=== PATIENT | female | born 1955 | race Caucasian/White ===

== ENCOUNTER 2018-05-21 11:44 | Emergency (ER) | payer SELFPAY ==
[~2018-05-21] VITALS: Ht 160 cm; Wt 65.2 kg
[2018-05-21 11:47] VITALS: BP 136/65; PULSE 76; RESP 16; Ht 160 cm; Wt 65.2 kg
[2018-05-21] MEDS ORDERED: AZIT250T PO (13:13)
--- NOTE | 2018-05-21 13:20 | ERD ---
ER Documentation Chief Complaint Chief Complaint pt is bib family with c/o sore throat x 1 month HPI 62-year-old female presenting with multiple symptoms and stating she feels sick for the past 1 month. Initially she had URI symptoms. This lasted for about 2- 3 weeks. She got better for about 2 days then she started feeling sick again with subjective fevers, cough, sore throat, and cough productive of green phlegm. She is complaining of some soreness in her chest and her back as well. No facial pain, dizziness, vision disturbance, headaches, shortness of breath. She has been taking Tylenol for her fever and she took some Tylenol prior to arrival today. She feels that she is worsening. ROS All systems reviewed and are negative except as per history of present illness. Medications Home Meds Active Scripts Azithromycin* (Zithromax*) 250 Mg Tablet, 250 MG PO .ZPACK DIRECTED, #6 TAB TAKE 500 MG (2 TABS) THE FIRST DAY THEN 250 MG (1 TAB) DAYS 2-5 Prov:JAMMIE ARTHUR MD 05/21/18 Allergies Allergies: Coded Allergies: No Known Allergy (Unverified , 05/21/18) PMhx/Soc Medical and Surgical Hx: pt denies Medical Hx History of Surgery: No FmHx Family History: No diabetes Physical Exam Vitals Vital Signs Date Temp Pulse Resp B/P (MAP) Pulse Ox O2 O2 Flow FiO2 Time Delivery Rate 05/21/18 99.6 76 16 136/65 96 11:47 (88) Physical Exam Const: No acute distress, well-appearing, nontoxic Head: Atraumatic Eyes: Normal Conjunctiva, PERRLA ENT: Normal External Ears, Nose and Mouth. Voice is somewhat hoarse. No tonsillar swelling, pharyngeal erythema, or exudates. No posterior oropharyngeal swelling. No stridor. No drooling. Neck: Full range of motion. No meningismus.Shotty cervical lymphadenopathy. Resp: Clear to auscultation bilaterally. No wheezing, rales, rhonchi Cardio: Regular rate and rhythm, no murmurs Abd: Soft, non tender, non distended. Normal bowel sounds Skin: No petechiae or rashes Back: No midline or flank tenderness Ext: No cyanosis, or edema Neur: Awake and alert, normal speech, moving all extremities, normal gait Psych: Normal Mood and Affect Procedures/MDM Initial Nursing notes reviewed. Previous Medical Records requested via the Electronic Health Record. EMERGENCY DEPARTMENT COURSE / MEDICAL DECISION MAKING: Patient is presenting with what seems to be a respiratory illness for the past 1 month with some improvement but worsening over the last week. She has had subjective fevers but is afebrile here with stable vitals. I have a low suspicion for pneumonia. However I cannot rule out a bacterial bronchitis versus sinusitis. I discussed with the patient the possibility that she contracted another viral infection. However given the worsening symptoms, I did recommend a course of antibiotics. Patient was amenable with this plan. I even advised she wait 2 days until she starts antibiotics in case this is a viral infection. Patient is agreeable with this plan. I have a low suspicion for bacterial tracheitis, epiglottitis, retropharyngeal abscess, or peritonsillar abscess. There is no evidence of bacterial pharyngitis on exam. Return precautions were discussed. Prescription for azithromycin given. Patient's blood pressure was elevated (>120/80) but appears stable without evidence of hypertensive emergency or urgency. The patient was counseled about the risks of hypertension and urged to pursue outpatient monitoring and therapy within a week with their primary care physician. Departure Diagnosis: Primary Impression: Cough Additional Impression: Sore throat Condition: Stable Patient Instructions: Bronchitis, Antiobiotic Treatment (Adult) JAMMIE ARTHUR MD May 21, 2018 13:20
== END 2018-05-21 14:24 | disposition home or self-care (01) ==
LOC: FTE 11:44
DX: J02.9 Acute pharyngitis, unspecified (principal)
CPT/HCPCS: 99283